=== PATIENT | female | born 1945 | race Two or more races ===

== ENCOUNTER 2020-08-03 09:22 | Outpatient (REF) | payer MEDICARE, SELFPAY | END 2020-08-03 09:23 | disposition home or self-care (01) | LOC: HO.SCI 09:22 | PROVIDERS: Visit Provider Pediatrics | DX: Z13.89 Encounter for screening for other disorder (principal) ==

== ENCOUNTER 2021-07-07 08:56 | Outpatient (REF) | payer MEDICARE, MEDICAID, SELFPAY ==
--- NOTE | ~2021-07-07 | CT_ITS ---
EXAMINATION: CT HEAD WITHOUT CONTRAST CLINICAL INFORMATION: Alzheimer's disease. COMPARISON: None TECHNIQUE: Contiguous axial imaging was performed from the skull base to vertex without intravenous administration of contrast. This CT examination was performed using dose optimization techniques as appropriate, variously including the following: *Automated exposure control *Adjustment of mA and/or kV according to patient size (this includes techniques or standardized protocols for targeted exams where dose is matched to indication/reason for exam; i.e. extremities or head) *Use of iterative reconstruction technique DLP: 642 mGy-cm FINDINGS: There is no evidence of acute intracranial hemorrhage or territorial infarction. No abnormal mass effect or midline shift is seen. Arshad to white matter differentiation is well preserved. No extra-axial fluid collections are identified. The ventricles are normal in size. There is no abnormal attenuation within the brain parenchyma. The osseous structures and soft tissues are normal. The mastoid air cells and visualized portions of the paranasal sinuses are well aerated. CT/CT head/brain wo con IMPRESSION: No acute intracranial process seen.
== END 2021-07-07 08:57 | disposition home or self-care (01) ==
LOC: HO.CT 08:56
PROVIDERS: PCP Pediatrics; Visit Provider Psychiatry & Neurology Neurology
DX: G30.9 Alzheimer's disease, unspecified (principal)
CPT/HCPCS: 70450

== ENCOUNTER 2023-03-21 11:54 | Outpatient (REF) | payer MEDICARE, SELFPAY ==
[2023-03-21 15:18] LABS: Folate 9.1 ng/mL (> or = 4.0); Vitamin B12 > 2000 pg/mL (200-900)
== END 2023-03-21 11:55 | disposition home or self-care (01) ==
LOC: HO.CHCLDS 11:54
PROVIDERS: Visit Provider Pediatrics
DX: E53.8 Deficiency of other specified B group vitamins (principal)
CPT/HCPCS: 36415; 82607; 82746

== ENCOUNTER 2025-01-22 09:26 | Outpatient (REF) | payer MEDICARE, SELFPAY ==
--- OUTSIDE RECORDS SUMMARY | 2025-01-21 11:30 | XMS_ITS | Encounter Summary ---
Author Organization [employer] Address [address] [facility] [address] [place] [address] Care Team Providers Care Aboriginal Education Teacher Name Role Phone Kristi Guerrero MD Primary Care Provider [phone] Encounter Details Date Type Department Care Team ([facility] st Contact Info) Description 01/21/2025 11:30 AM EST Office Visit [facility] CHC MED & PEDS [address] [place], [place] [phone] Kristi Guerrero MD [address] [place] [address] Swelling of finger of left hand (Primary Dx); Dietary counseling; Exercise counseling; Benign essential hypertension; Age related osteoporosis, unspecified pathological fracture presence Social History Tobacco Use Types Packs/Day Years Used Date Smoking Tobacco: Never Passive Smoke Exposure: Never Smokeless Tobacco: Never Depression Answer Date Recorded Patient Health Questionnaire-9 Score 1 01/21/2025 Patient Health Questionnaire-9 Score 1 01/21/2025 Last PHQ-9: Questionnaire Data Not on file 1 03/23/2024 Housing Stability Answer Date Recorded What is your housing situation today? I have winnie xiong 01/21/[address] you li ve. Do you have problems with any of the following? None of the above 01/21/2025 Food Insecurity Answer Date Recorded Within the past 12 months, y ou worried that your food would run out before you got money to buy more: Never True 01/21/2025 Within the past 12 months,th e food you bought just didn't last and you didn't have enough money to get more: Never True 02/2025 Transportation Answer Date Recorded In the past 12 months, has l ack of transportation kept you from medical appts, meetings, work or from getting things needed for daily living? No 01/21/2025 Utilities Answer Date Recorded In the past 12 months, has t he electric, gas, oil or water company threatened to shut off services in your home? No 01/21/2025 Depression Answer Date Recorded Patient Health Questionnaire-2 Score 1 01/21/2025 Internet Access Answer Date Recorded Internet Access Q1 Yes 01/21/2025 Internet Access Q2 Not on file 01/21/2025 Comments Unknown Sex and Gender Information Value Date Recorded Sex Assigned at Female 01/09/2022 10:37 AM EDT Legal Sex Female 10:37 AM EDT Gender Identity Female 01/09/2022 10:37 AM EDT Sexual Orientation Straight 01/09/2022 10 :37 AM EDT documented as of this encounter Last Filed Vital Signs Vital Sign Reading Time Taken Comments Blood Pressure 130/60 01/21/2025 11:37 AM EST Pulse 72 01/21/2025 11:37 AM EST Temperature 36.2 C (97.1 F) 01/21/2025 11:37 AM EST Respiratory Rate 20 01/21/2025 11:37 AM EST Oxygen Saturation - - Inhaled Oxygen Concentration - - Weight 63.5 kg (140 lb) 01/21/2025 11:37 AM EST Height - - Body Mass Index 29.01 10/07/2024 2:15 PM EDT documented in this encounter Functional Status * Over the past 2 weeks, how often have you been bothered by any of the following problems? Question Answer Date of Assessment Author Patient Health Questionnaire -2 Score 1 01/21/2025 12:40 PM EST Lia Espitia MA * Little interest or pleasure in doing things Answer Date of Assessment Author Not at all 01/21/2025 12:40 PM EST Tata Jaramillo MA * Feeling down, depressed, or hopeless Answer Date of Assessment Author Several days 01/21/2025 12:40 PM Tata Castañeda MA * Trouble falling or staying asleep, or sleeping too much Answer Date of Assessment Author Not at all 01/21/2025 12:40 PM EST Tata Jaramillo MA * Feeling tired or having little energy Answer Date of Assessment Author Not at all 01/21/2025 12:40 PM Tata Castañeda MA * Poor appetite or overeating Answer Date of Assessment Author Not at all 01/21/2025 12:40 PM Tata Castañeda MA * Feeling bad about yourself - or that you are a failure or have let yourself or your family down Answer Date of Assessment Author Not at all 01/21/2025 12:40 PM Tata Castañeda MA * Trouble concentrating on things, such as reading the newspaper or watching television Answer Date of Assessment Author Not at all 01/21/2025 12:40 PM Tata Castañeda MA * Moving or speaking so slowly that other people could have noticed? Or the opposite - being so fidgety or restless that you have been moving around a lot more than usual. Answer Date of Assessment Author Not at all 01/21/2025 12:40 PM Tata Castañeda MA * Thoughts that you would be better off or hurting yourself in some way Answer Date of Assessment Author Not at all 01/21/2025 12:40 PM Tata Castañeda MA * Patient Health Questionnaire-9 Score Answer Date of Assessment Author 1 01/21/2025 12:40 PM Tata Castañeda MA * Over the last 2 weeks, how often have you been bothered by any of the following problems? Question Answer Date of Assessment Author Feeling nervous, anxious, or on edge 1 01/21/2025 12:40 PM Lia Jones MA Not being able to stop or control worrying 1 01/21/2025 12:40 PM Lia Jones MA Worrying too much about different things 0 01/21/2025 12:40 PM Lia Jones MA Trouble relaxing 0 01/21/2025 12:40 PM Tata Jones MA Being so restless that it is hard to sit still 0 01/21/2025 12:40 PM Lia Jones MA Becoming easily annoyed or irritable 1 01/21/2025 12:40 PM Lia Jones MA Feeling afraid as if somethi ng awful might happen 1 01/21/2025 12:40 PM Lia Jones MA TANIA-7 Total Score 4 01/21/2025 12:40 PM Tata Jones MA * How difficult have these problems made it for you to do your work, take care of things at home, or get along with other people? Answer Date of Assessment Author Not difficult at all 01/21/2025 12:40 PM Tata Ibarra MA documented as of this encounter Progress Notes * Kristi Guerrero MD - 01/21/2025 11:30 AM EST Subjective Patient ID: Brisa Jane is a 79 y.o. female who presents for follow up Er. Brisa Jane, age 79 years Left Hand Swelling and Pain Swelling and pain in the left hand began approximately one month ago. No history of trauma or fall.Swelling recurred after initial improvement. Denies fever. Pain increases with movement and prevents full closure of the hand. Ibuprofen 400 mg provided relief. [facility] 01[facility]25 which temporarily reduced swelling. Xray done Reports a metallic foreign body in one finger, present for years, origin unknown. 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 No insect bite reported. Difficulty with hand function, requiring assistance for bathing and daily activities. Ocular Dryness Occasional sensation of dry eyes, managed with lubricating eye drops as needed. No daily requirement for drops. History of prior eye cataract surgery done recently w/o complications. Review of Systems Constitutional: Negative for activity change, chills, fever and unexpected weight change. Respiratory: Negative for cough, shortness of breath and wheezing. Cardiovascular: Negative for chest pain, palpitations and leg swelling. Gastrointestinal: Negative for abdominal pain and blood in stool. Endocrine: Negative for polydipsia and polyuria. Genitourinary: Negative for decreased urine volume, difficulty urinating, dysuria and hematuria. Musculoskeletal: Positive for arthralgias and joint swelling. Negative for gait problem. Skin: Negative for color change and rash. Neurological: Negative for dizziness and headaches. Hematological: Negative for adenopathy. Psychiatric/Behavioral: Negative for dysphoric mood, hallucinations, sleep disturbance and suicidalideas. The patient is not nervous/anxious. Objective BP 130/60 (BP Location: Left arm, Patient Position: Sitting, BP Cuff Size: Adult) Pulse72 Temp 97.1 ??F (36.2 ??C) (Oral) Resp 20 Wt 140 lb (63.5 kg) BMI 29.01 kg/m?? Physical Exam Vitals reviewed. Constitutional: General: She is not in acute distress. Appearance: Normal appearance. She is not ill-appearing. HENT: Head: Normocephalic. Cardiovascular: Rate and Rhythm: Normal rate and regular rhythm. Heart sounds: Normal heart sounds. Pulmonary: Effort: Pulmonary effort is normal. No respiratory distress. Breath sounds: Normal breath sounds. Musculoskeletal: General: Swelling and tenderness present. Right hand: Normal. Left hand: Swelling present. Decreased range of motion. Skin: Capillary Refill: Capillary refill takes less than 2 seconds. Findings: No erythema or rash. Neurological: Mental Status: She is alert and oriented to person, place, and time. Mental status is at baseline. Psychiatric: Mood and Affect: Mood normal. Behavior: Behavior normal. Assessment/Plan Diagnoses and all orders for this visit: Swelling of finger of left hand: - Swelling of the left finger possibly related to gout or other inflammatory process. Differential diagnosis includes gout and nerve impingement. Presence of a metallic foreign body noted on imaging.No evidence of trauma or insect bite. Arthritis noted in the fingers. - Ordered blood tests to evaluate for infection and uric acid levels. Will review laboratory results and call with findings. If laboratory results indicate gout or persistent inflammation, may refer to rheumatology. Recommended continued use of prescribed anti-inflammatory medication as previously directed. Ordered EMG to assess for nerve involvement. Provided instructions to call costume specialist if not contacted within 2-3 days. Advised use of transfer shower chair and shower bar for safety and assistance with bathing. Benign essential hypertension: - Benign essential hypertension is being managed with current antihypertensive medication. - Continue current antihypertensive regimen. Age related osteoporosis, unspecified pathological fracture presence: - Age-related osteoporosis increases risk for falls and fractures. - Advised use of transfer shower chair and shower bar to reduce fall risk. Reinforced safety precautions when navigating stairs. Swelling of finger of left hand - CBC auto differential; Future - Uric acid; Future - Rheumatoid Factor; Future - Sed Rate by Modified Westergren; Future Dietary counseling Exercise counseling Benign essential hypertension Age related osteoporosis, unspecified pathological fracture presence documented in this encounter Plan of Treatment Scheduled Orders Name Type Priority Associated Diagnoses Orde r Schedule CBC auto differential Lab Routine Swelling of finger of left hand Expected: 01/21/2025 (Approximate), Expires: 01/21/2026 Uric acid Lab Routine Swelling of finger of left hand Expected: 01/21/2025 (Approximate), Expires: 01/21/2026 Rheumatoid Factor Lab Routine Swelling of finger of left hand Expected: 01/21/2025, Expires: 01/21/2026 Sed Rate by Modified Westergren Lab Routine Swelling of finger of left hand Expected: 01/21/2025, Expires: 01/21/2026 documented as of this encounter Visit Diagnoses Diagnosis Swelling of finger of left hand- Primary Dietary counseling Dietary surveillance and counseling Exercise counseling Benign essential hypertension Essential hypertension, benign Age related osteoporosis, unspecified pathological fracture presence documented in this encounter Additional Health Concerns Assessment Noted Time PHQ-9 Depression Total Score: 1 01/22/20 25 12:40 PM EST documented as of this encounter Care Teams Aboriginal Education Teacher Relationship Specialty Start Date End Date Kristi Guerrero MD [address] [place] [id number] PCP - General Family Medicine 01/08/20 documented as of this encounter
--- OUTSIDE RECORDS SUMMARY | 2025-01-22 10:49 | XMS_ITS | Clinical Summary ---
[facility] Address [address] [place] [address] Care Team Providers Care Case Management Social Worker Name Role Phone Unavailable Primary Care Provider Unavailabl e Social History Tobacco Use Types Packs/Day Years Used Date Smoking Tobacco: Never Assessed Comments Unknown Sex and Gender Information Value Date Recorded Sex Assigned at Not on file Legal Sex Female 12:43 PM EST Gender Identity Not on file Sexual Orientation Not on file Plan of Treatment Health Maintenance Due Date Last Done Comments DTaP,Tdap,and Td Vaccines (1 - Tdap) 06/18/1964 Pneumococcal Vaccine: 50+ Ye ars (1 of 1 - PCV) 1994 Zoster Vaccines (1 of 2) 1994 RSV Immunization Adult Patie nts (1 - 1-dose 75+ series) 06/18/2019 Falls Risk Assessment 04/10/2023 Social Influencers of Health Screening 04/10/2023 Depression Screening 03/12/2024 COVID-19 Vaccine (1 - 2024-2 6 season) 2024 Influenza Vaccine (#1) 2024 Osteoporosis Screening (Bone Density Screening) 09/25/2032 09/25/2022 HIB Vaccines Aged Out No longer eligi ble based on patient's age to complete this topic HPV Vaccines Aged Out No longer eligi ble based on patient's age to complete this topic Hepatitis A Vaccines Aged Out No long er eligible based on patient's age to complete this topic Hepatitis B Vaccines Aged Out No long er eligible based on patient's age to complete this topic IPV Vaccines Aged Out No longer eligi ble based on patient's age to complete this topic MMR Vaccines Aged Out No longer eligi ble based on patient's age to complete this topic Meningococcal ACWY Vaccine Aged Out N o longer eligible based on patient's age to complete this topic Meningococcal B Vaccine Aged Out No l onger eligible based on patient's age to complete this topic RSV Immunization Patients Un lv 20 months Aged Out No longer eligible b ased on patient's age to complete this topic Varicella Vaccines Aged Out No longer eligible based on patient's age to complete this topic Procedures Procedure Name Priority Date/Time Associated Diagnosis Comments [facility] DEXA AXIAL SKELETON Routine 09/25/2022 7:33 AM EDT Age-related osteoporosis without current pathological fracture from Last 3 Months or Most Recently Relevant to Health Maintenance Results * [facility] DEXA AXIAL SKELETON (09/25/2022 7:33 AM EDT) Anatomical Region Laterality Modality Mammography 09/19/2022 1:50 PM EDT Narrative 09/25/2022 7:[address] [facility] Diagnostic Imaging Department [address] [place] [address] Patient: DULCE KUMARILAUREL /Age/Sex: 1945 - 77 - F Unit#: [id number] Location/Status: [facility] Ordering Physician: NOMAN GUERRERO [facility] Dexa Axial Skeleton - 09/19/22 - 3 Report Status:Signed HISTORY: The patient is a 77-year-old postmenopausal female with clinical concern for metabolic bone disease. FINDINGS: Dual energy x-ray absorptiometry of the lumbar spine and femurs is performed. The mean bone mineral density at L1-3 is 0.812 gm/cm2 which is 69% of that of young normals and 86% of that of age matched controls. This yields a T- score of -3.0 and a Z-score of -1.1 which is diagnostic of osteoporosis. The mean bone mineral density of the femurs bilaterally is 0.724 gm/cm2 which is 72% of that of young normals and 95% of that of age matched controls. This yields a T-score of -2.3 and a Z-score of -0.3 which is diagnostic of osteopenia. However, the T-score of the right femoral neck is -3.3 and that of the left femoral neck is -3.2 which is diagnostic of osteoporosis. IMPRESSION: 1. Osteoporosis. 2. FRAX analysis yields a 10-year probability of major osteoporotic fracture of 34.4% and a 10-year probability of hip fracture of 26.3%. Code 98152 Dictating Physician: ELMIRA RODRIGUES MD Electronically Signed by: ELMIRA RODRIGUES MD Dic Date/Time: 09/25/22731 Sign date/Time: 09/25/22732 Procedure Note Elmira Rodrigues MD - 04/17/2023 [facility] Diagnostic Imaging Department [address] [place] [address] Patient: LAUREL CASTANEDA/Age/Sex: 1945 - 77 - F Unit#: [id number] Location/Status: [facility] CLI [facility]emonic[facility] Ordering Physician: NOMAN GUERRERO F[facility] Dexa Axial Skeleton - 09/19/22 - 1413 Report Status:Signed HISTORY: The patient is a 77-year-old postmenopausal female withclinical concern for metabolic bone disease. FINDINGS: Dual energy x-ray absorptiometry of the lumbar spine and femursis performed. The mean bone mineral density at L1-3 is 0.812 gm/cm2 which is69% of that of young normals and 86% of that of age matched controls. This yieldsa T- score of -3.0 and a Z-score of -1.1 which is diagnostic of osteoporosis. The mean bone mineral density of the femurs bilaterally is 0.724 gm/vk1gacot is 72% of that of young normals and 95% of that of age matched controls.This yields a T-score of -2.3 and a Z-score of -0.3 which is diagnostic of osteopenia. However, the T-score of the right femoral neck is -3.3 andthat of the left femoral neck is -3.2 which is diagnostic of osteoporosis. IMPRESSION: 1. Osteoporosis. 2. FRAX analysis yields a 10-year probability of major osteoporoticfracture of 34.4% and a 10-year probability of hip fracture of 26.3%. Code 30460 Dictating Physician: ELMIRA RODRIGUES MD Electronically Signed by: ELMIRA RODRIGUES MD Dic Date/Time: 09/25/22731 Sign date/Time: 09/25/22732 us Noman Guerrero MD IMG BI PROCEDURES Final Resul t from Last 3 Months or Most Recently Relevant to Health Maintenance
--- OUTSIDE RECORDS SUMMARY | 2025-01-22 10:49 | XMS_ITS | Encounter Summary ---
Author Organization [employer] Address [address] [facility] [address] [place] [address] Care Team Providers Care Drivers License Examiner Name Role Phone Kristi Guerrero MD Primary Care Provider [phone] Reason for Visit * Reason Onset Date Comments Chart Prep 01/20/2025 Encounter Details Date Type Department Care Team ([facility] st Contact Info) Description 01/20/2025 Telephone [facility] CHC MED & PEDS [address] [place], [place] [phone] Kristi Guerrero MD [address] [place] [address] Chart Prep Social History Tobacco Use Types Packs/Day Years [...] AM EDT documented as of this encounter Miscellaneous Notes * Telephone Encounter - Tata Espitia MA - 01/20/2025 3:12 PM EST Chart Prep Labs: not applicable Images: not applicable Referrals: appointment pending Vaccines due: Covid and RSV Screenings: not applicable Overdue care gaps: SBIRT, SDOH, PHQ-9, Oral health screening, and Tobacco documented in this encounter Plan of Treatment Not on file documented as of this encounter Visit Diagnoses Not on filedocumented in this encounter Additional Health Concerns Assessment Noted Time PHQ-9 Depression Total Score: 0 09/07/19 23 9:12 AM EDT documented as of this encounter Care Teams Drivers License Examiner Relationship Specialty Start Date End Date Kristi Guerrero MD [address] [place] [id number] PCP - General Family Medicine 01/08/20 documented as of this encounter
--- OUTSIDE RECORDS SUMMARY | 2025-01-22 10:49 | XMS_ITS | Clinical Summary ---
Author Organization [employer] Address [address] [facility] [address] [place] [address] Care Team Providers Care Field Technical Assistant Name Role Phone Kristi Guerrero MD Primary Care Provider [phone] Allergies No known active allergies Medications alendronate (Fosamax) 70 MG tabletIndications :Age-related osteoporosis without current pathological fracture TAKE 1 TABLET(70 MG) BY MOUTH EVERY 7 DAYS 4 tablet 11 4 Active cholecalciferol (Vitamin D-3) 50 MCG (1999 UT) tablet TAKE 1 TABLET BY MOUTH DAILY 90 tablet 3 4 Active cyanocobalamin (Vitamin B-12) 500 MCG tablet TAKE 1 TABLET(500 MCG) BY MOUTH IN THE MORNING 30 tablet 3 5 Active amLODIPine (Norvasc) 5 MG tabletIndications :Primary hypertension TAKE 1 TABLET(5 MG) BY MOUTH IN THE MORNING 30 tablet 5 5 Active sertraline (Zoloft) 25 MG tablet Take 25 mg by mouth Once per day. Active Hospital, Clinic, or Other Facility Administered Medication Ordered Dose Route Frequency Start Date End Date Status cyanocobalamin (Vitamin B-12) injection 1,000 mcgIndications:Vitamin B 12 deficiency 1000 mcg IM Every 30 days 08/18/2022 Active cyanocobalamin (Vitamin B-12) injection 1,000 mcgIndications:Vitamin B 12 deficiency 1000 mcg IM Every 30 days 09/18/2022 Active cyanocobalamin (Vitamin B-12) injection 1,000 mcgIndications:Vitamin B 12 deficiency 1000 mcg IM Every 30 days 11/14/2022 Active cyanocobalamin (Vitamin B-12) injection 1,000 mcgIndications:Vitamin B 12 deficiency 1000 mcg IM Every 30 days 12/21/2022 Active Active Problems Problem Noted Date Diagnosed Date Age related osteoporosis 01/21/2025 Osteoarthritis 09/20/2023 Memory impairment 06/24/2020 Benign essential hypertension 01/08/2020 Pathological fracture due to osteoporosis 2019 Encounters Date Type Department Care Team Description 01/21/2025 11:30 AM EST Office Visit [facility] [address] [place] [address] Kristi Guerrero MD Swelling of finger of left hand (Primary Dx); Dietary counseling; Exercise counseling; Benign essential hypertension; Age related osteoporosis, unspecified pathological fracture presence 01/21/[address] [facility] [address] [place] [address] Kristi Guerrero MD 01/21/2025 Travel 01/20/[address] [facility] [address] [place] [address] Kristi Guerrero MD Chart Prep 12/31/[address] [facility] [address] [place] [address] Kristi Guerrero MD Nurse Triage 11/07/[address] [facility] [address] [place] [address] Kristi Guerrero MD Med Refill 11/07/2024 Refill [facility] [address] [place] [address] Kristi Guerrero MD Primary hypertension from Last 3 Months Immunizations Immunization Administration Dates Next Due Influenza High-dose Quadrivalent Preservative Fr ee 12/13/2021 Influenza Whole 02/20/2019 Influenza injectable quadrivalent preservative f ree 03/21/2023 Influenza, High Dose Seasonal, Preservative Free 12/29/2023 Influenza, trivalent, adjuvanted 12/08/2024 Pneumococcal Conjugate PCV 13 2019 Pneumococcal Conjugate PCV 20 08/25/2021 Zoster, Recombinant 08/25/2021,06/22/2021 Social History Tobacco Use Types Packs/Day Years Used Date Smoking Tobacco: Never Passive Smoke Exposure: Never Smokeless Tobacco: Never Tobacco Cessation:Counseling Given: Not Answered Depression Answer Date Recorded Patient Health Questionnaire-9 [...] Orientation Straight 01/09/2022 10 :37 AM EDT Last Filed Vital Signs Vital Sign Reading Time Taken Comments Blood Pressure 130/60 01/21/2025 11:37 AM EST Pulse 72 01/21/2025 11:37 AM EST Temperature 36.2 C (97.1 F) 01/21/2025 11:37 AM EST Respiratory Rate 20 01/21/2025 11:37 AM EST Oxygen Saturation 97% 10/07/2024 2:15 PM EDT Inhaled Oxygen Concentration - - Weight 63.5 kg (140 lb) 01/21/2025 11:37 AM EST Height 148 cm (4' 10.25 ) 10/07/2024 2:15 PM EDT Body Mass Index 29.01 10/07/2024 2:15 PM EDT Plan of Treatment Health Maintenance Due Date Last Done Comments DTaP/Tdap/Td Vaccines (1 - Tdap) 06/18/1964 RSV Patients and Patients Aged 60 years or older (1 - 1-dose 75+ series) 06/18/2019 COVID-19 Vaccine ( season) 2024 06/15/2021, 06/25/2020, 05/28/2020 Alcohol/Substance Use Screening 01/21/2026 01/21/2025 Depression Screening 01/21/2026 01/21/2025, 01/22/20 SDOH Screening 01/21/2026 01/21/2025 Tobacco Screening 01/21/2026 01/21/2025 Lipid Panel 08/30/2027 08/29/2022, 05/11, 01/13/2020 Pneumococcal Vaccine: 50+ Years Completed 08/25/2021, 2019 Zoster Vaccines Completed 08/25/2021, 06/22/2021 Influenza Vaccine Completed 12/08/2024, , 03/21/2023, Additional history exists HIB Vaccines Aged Out No longer eligi [...] patient's age to complete this topic Meningococcal Vaccine Aged Out No elvis dary eligible based on patient's age to complete this topic RSV under 20 months Aged Out No longe r eligible based on patient's age to complete this topic Rotavirus Vaccines Aged Out No longer eligible based on patient's age to complete this topic Procedures Procedure Name Priority Date/Time Associated Diagnosis Comments LIPID PANEL, STANDARD Routine 08/29/2022 9:41 AM EDT Vitamin B 12 deficiency Benign essential hypertension Pathological fracture of hip due to age-related osteoporosis with routine healing, unspecified laterality, subsequent encounter from Last 3 Months or Most Recently Relevant to Health Maintenance Results * (ABNORMAL) Lipid Panel, Standard (08/29/2022 9:41 AM EDT) Cholesterol, Total 126 <200 mg/dL [facility] HDL Cholesterol 28(L) > OR = 50 mg/dL [facility] Triglycerides 114 <150 mg/dL [facility] LDL Cholesterol 78 mg/dL (calc) [facility] Comment: Reference range: <100 Desirable range <100 mg/dL for primary prevention; <70 mg/dL for patients with CHD or diabetic patients with > or = 2 CHD risk factors. LDL-C is now calculated using the Landy calculation, which is a validated novel method providing better accuracy than the Friedewald equation in the estimation of LDL-C. Ricardo SS et al. CORINNA. 2013;310(19): 8738-4004 (http://education.[employer]/faq/NRS211) Chol/HDLC Ratio 4.5 <5.0 (calc) [facility] Non-HDL Cholesterol 98 <130 mg/dL (calc) [facility] Comment: For patients with diabetes plus 1 major ASCVD risk factor, treating to a non-HDL-C goal of <100 mg/dL (LDL-C of <70 mg/dL) is considered a therapeutic option. Blood Venous blood specimen / Unknown 08/29/2022 9:41 AM EDT 08/29/2022 9:42 AM EDT Narrative [facility] - 08/30/2022 7:15 AM EDT FASTING:YES FASTING: YES us Kristi Guerrero MD LAB BLOOD ORDERABLES Final Re sult [facility] [address], [place] [address] [facility] [address] [place] [address] from Last 3 Months or Most Recently Relevant to Health Maintenance Insurance DUAL COMPLETE Advance Directives Documents on File Type Date Recorded Patient [employer] Expl anation Advance Directives and Living Will 10/24/2023 HEALTHCARE PROXY 10/11 08/31 Advance Directives and Living Will 10/24/2023 HEALTHCARE PROXY 10/11 08/31 Care Teams Field Technical Assistant Relationship Specialty Start Date End Date Kristi Guerrero MD [address] [place] [address] PCP - General Family Medicine 01/08/20
--- OUTSIDE RECORDS SUMMARY | 2025-01-22 10:49 | XMS_ITS | Encounter Summary ---
Author Organization [employer] Address [address] [place] [address] Care Team Providers Care [employer] French Teacher Name Role Phone Kristi Guerrero MD Primary Care Provider [phone] Reason for Visit * Reason Onset Date Comments Med Refill 11/07/2024 Encounter Details Date Type Department Care Team ([facility] st Contact Info) Description 11/07/2024 Telephone [facility] [address] [place], [place] [id number] Kristi Guerrero MD [address] [place] [address] Med Refill Social History Tobacco Use Types Packs/Day Years Used Date Smoking Tobacco: Never Passive Smoke Exposure: Never Smokeless Tobacco: Never Depression Answer Date Recorded Patient Health Questionnaire-9 Score 0 09/06/2022 Housing Stability Answer Date Recorded What is your housing situation today? I have winnie xiong 01/18/[address] you li ve. Do you have problems with any of the following? None of the above 01/18/2023 Food Insecurity Answer Date Recorded Within the past 12 months, y ou worried that your food would run out before you got money to buy more: Never True 01/18/2023 Within the past 12 months,th e food you bought just didn't last and you didn't have enough money to get more: Never True 11/2022 Transportation Answer Date Recorded In the past 12 months, has l ack of transportation kept you from medical appts, meetings, work or from getting things needed for daily living? No 01/18/2023 Utilities Answer Date Recorded In the past 12 months, has t he electric, gas, oil or water company threatened to shut off services in your home? No 01/18/2023 Depression Answer Date Recorded Patient Health Questionnaire-2 Score 0 09/06/2022 Comments Unknown Sex and Gender Information Value Date Recorded Sex Assigned at Female 01/09/2022 10:37 AM EDT Legal Sex Female 10:37 AM EDT Gender Identity Female 01/09/2022 10:37 AM EDT Sexual Orientation Straight 01/09/2022 10 :37 AM EDT documented as of this encounter Miscellaneous Notes * Telephone Encounter - Keli Bacon LPN - 11/07/2024 4:14 PM EDT Medication pended to PCP. * Telephone Encounter - Juan Ziegler - 11/07/2024 4:12 PM EDT TC from pt requesting medication refill. Medications needing refill : amLODIPine (Norvasc) 5 MG tablet To be sent to: [id number] [place], [place] - [facility] documented in this encounter Plan of Treatment Not on file documented as of this encounter Visit Diagnoses Not on filedocumented in this encounter Additional Health Concerns Assessment Noted Time PHQ-9 Depression Total Score: 0 09/07/19 23 9:12 AM EDT documented as of this encounter Care Teams [employer] French Teacher Relationship Specialty Start Date End Date Kristi Guerrero MD [address] [place] [id number] PCP - General Family Medicine 01/08/20 documented as of this encounter
--- OUTSIDE RECORDS SUMMARY | 2025-01-22 10:49 | XMS_ITS | Encounter Summary ---
Author Organization [employer] Address [address] [facility] [address] [place] [address] Care Team Providers Care Information Clerk [employer] Name Role Phone Kristi Guerrero MD Primary Care Provider [phone] Encounter Details Date Type Department Care Team (Latest Contact Info) Description 01/21/2025 Travel Social History Tobacco Use Types Packs/Day Years Used Date Smoking Tobacco: Never Passive Smoke Exposure: Never Smokeless Tobacco: Never Depression Answer Date Recorded Patient Health Questionnaire-9 Score 1 01/21/2025 Patient Health Questionnaire-9 Score 1 01/21/2025 Last PHQ-9: Questionnaire Data Not on file 1 03/23/2024 Housing Stability Answer Date Recorded What is your housing situation today? I have winniedeon xiong 01/21/[address] you [...] AM EDT documented as of this encounter Functional Status * Over the past 2 weeks, how often have you been bothered by any of the following problems? Question Answer Date of Assessment Author Patient Health Questionnaire -2 Score 1 01/21/2025 12:40 PM Lia Jones MA * Little interest or pleasure in doing things Answer Date of Assessment Author Not at all 01/21/2025 12:40 PM Tata Castañeda MA * Feeling down, depressed, or hopeless Answer Date of Assessment Author Several days 01/21/2025 12:40 PM Tata Castañeda MA * Trouble falling or staying asleep, or sleeping too much Answer Date of Assessment Author Not at all 01/21/2025 12:40 PM Tata Castañeda MA * Feeling tired or having little [...] Ibarra MA documented as of this encounter Plan of Treatment Not on file documented as of this encounter Visit Diagnoses Not on filedocumented in this encounter Additional Health Concerns Assessment Noted Time PHQ-9 Depression Total Score: 1 01/22/20 25 12:40 PM EST documented as of this encounter Care Teams Information Clerk [employer] Relationship Specialty Start Date End Date Kristi Guerrero MD [address] [facility] [place] [address] PCP - General Family Medicine 01/08/20 documented as of this encounter
--- OUTSIDE RECORDS SUMMARY | 2025-01-22 10:49 | XMS_ITS ---
Author Name Anshul AGUILERA, MRS. Garcia Address [address] [place] [address] Phone [phone] [facility] Care Team Providers Care Director Of Dance Name Role Phone Radha Landers Unavailable [phone] DONNABENNOMAN Bustamante Unavailable [phone] Reason for Referral Not Available Allergies, adverse reactions, alerts No known allergies History of medication use Medication Class Instructions Start Date End Date Alendronate Sodium 70 mg Tab take 1 tabl et orally once every week 2020-11-26 No Data Available amLODIPine Besylate 5 mg Tab take 1 tabl et orally once daily 2020-11-26 No Data Available VITAMIN D3 50MCG TABLETS TAKE 1 TABLET B Y MOUTH DAILY 2022-01-30 2024-11-20 Sertraline 25 mg Tab Take 1 tablet daily 2022-04-21 No Data Available Cyanocobalamin 1000 MCG/ML Solution ADMINISTER 1 ML IN THE MUSCLE EVERY 30 DAYS 2022-07-17 2023-09-20 VITAMIN B-12 500MCG TABLETS once a day 2023-03-21 No Data Available Donepezil 5 mg Tab TAKE 1 TABLET BY YOAV TH DAILY AT BEDTIME 2023-05-23 2024-11-20 VITAMIN D3 50 MCG (1999 UT) TABS Take 1 tab by mouth daily 2024-01-28 No Data Availa ble Ketorolac Tromethamine 0.5 % Solution Ophthalmic 1 drop to right eye daily 2024-10-06 2024-12-18 Moxifloxacin 0.5 % Solution No Data Available 2024-11-20 prednisoLONE Acetate 1 % Suspension INSTILL 1 DROP INTO AFFECTED EYE 3 TIMES A DAY STARTING TWO DAYS PRIOR TO SURGERY. CONTINUE DIRECTED 2024-10-06 2024-12-18 Vitamin C Tab Chewable 1 tablet orally daily 2024-11-10 1 No Data Available Ibuprofen 800 mg Tab 1 tablet orally geovanna ly as needed 2024-11-20 No Data Available Refresh Tears 0.5 % Solution Ophthalmic 1 drop in both eyes as needed 2024-12-18 No Data Available Problem List Problem Status Onset Date Resolved Date Synopsis Other problems related to medical facilities and other health care Active 2023-09-20 N/A DEMENTIA CO NTINGENCY PLANLast updated: 11/20/2024Member to call for the following symptoms: Aggression/ Agitation/ Delirium/ Dysuria/ Urinary frequency/ WithdrawnPlanned intervention: Place order for urinalysis and culture; family to take sample to lab/ Encourage increased fluid intake/ Ask about last bowel movement/ Assess for UTI symptoms; if present, start Macrobid 100mg BID x5 days/ Haloperidol 0.5mg PO q8h PRN agitation/ Trazodone 50mg at bedtime Primary hypertension Active 2022-04-21 N/A 09/19: Pt to continue AmlodipineDaughter and patient deny monitoring BP at home but report adult daycare center monitoring BP for patientContinue taking medication, encouraged monitoring BP at home or developing awareness of BP readings, diet and exercise, and contact us if emergent HTN s/sx develop 11/20/24: Has a BP machine at home Everyday BP is checked at home Report persistent readings of 140/90 and above12/18/2024 They check BP at the program she's going to and she's coming out alright . Per caregiver, member does not c/o chest pain, headaches, SOB. Advised to adhere to low sodium diet and exercise to control BP. Advised of BP >180/>100 reason to call CB. Minimal recurrent major depressive disorder Active 2022-04-21 N/A 09/20/23: Pt to continue Sertraline as ordered. Denies SI/HIContinue taking medication, discussed coping mechanisms, and contact us if SI/HI develop 11/20/24: on zoloftstates she is going to a program where she socializes and does activity which helps her a lotPHQ 9 score of 3No SI/HI reported Continue with medication and f/u with PCP Alzheimer disease Active 2022-04-21 N/A 09/20/23 : Pt to continue donepezil as ordered pending neuro follow-up this week. Forgetful.11/20/24: not on donepezil anymore- state she did not feel how it made her feel so it was stopped has dementia per daughteraround 5 months saw PCPforgets per daughterLosing ability to walk as well - has aches and pains at times she gets anxious/agitated but its rarelycontinue f/u with PCP Osteoporosis Active 2022-04-21 N/A 09/20/23: Pt to continue Alendronate, Vitamin [id number] taking medication, discussed dietary interventions, fall precautions, and contact us if injury r/t fall occurs. 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 Continue taking medication,F/U with PC P CataractChronic painGeneralized weakness Active 2024-11-20 N/A on eye dropsAugust had one eye cataract surgery12/03/24 has appt with doctor to get a scheduled date for the other eye continue to f/uHas a shower chair but does not know how long ago had it- states nurse came in and showed her a picture of one she wants and she tried it out it helped her a lot- advised to send a pic of the shower chair or give us the name otherwise provider does not know which one to order Daughter states that she will get that information and contact us back Asking for grab bars- advised to discuss with CM as she does not need an order for that Encounters Encounters Type Facility Date of Service Diagnosis/Co mplaint New patient,40-59min; chronic exacerbation, 2 stable chronic or 1 acute illness add add modifier 95 for video (do not use for phone, instead use [id number]) [facility], ([place]) 04/21/2022 Alzheimer's disease, unspecifiedDementia in oth diseases classd elswhr w/o behavrl disturbMajor depressive disorder, recurrent, mildEssential (primary) hypertensionAge-related osteoporosis without current pathological fracture New patient,40-59min; chronic exacerbation, 2 stable chronic or 1 acute illness add add modifier 95 for video (do not use for phone, instead use [id number]) [facility], ([place] 04[place]21/[place] New patient,40-59min; chronic exacerbation, 2 stable chronic or 1 acute illness add add modifier 95 for video (do not use for phone, instead use [id number]) [facility], ([place] 04[place]21/20[place] New patient,40-59min; chronic exacerbation, 2 stable chronic or 1 acute illness add add modifier 95 for video (do not use for phone, instead use 94737-27) [facility], ([place] 04/21/20[place] New patient,40-59min; chronic exacerbation, 2 stable chronic or 1 acute illness add add modifier 95 for video (do not use for phone, instead use 13273-32) [facility] ([place]) 04/21/2022 New patient,40-59min; chronic exacerbation, 2 stable chronic or 1 acute illness add add modifier 95 for video (do not use for phone, instead use 16901-73) [facility] ([place]) 04/21/2022 Unlisted special service; to be used for medical record reviews and reporting CPTII codes (1111F, etc) [facility] ([place]) 10/18/2022 Other specified counseling Unlisted special service; to be used for medical record reviews and reporting CPTII codes (1111F, etc) [facility] ([place]) 10/18/2022 Unlisted special service; to be used for medical record reviews and reporting CPTII codes (1111F, etc) [facility] ([place]) 10/18/2022 Estab. patient 30-39min; chronic exacerbation, 2 stable chronic or 1 acute illness add add modifier 95 for video, (do not use for phone, instead use 53483-16) [facility] ([place]) 09/20/2023 Alzheimer's disease, unspecifiedDementia in oth diseases classd elswhr w/o behavrl disturbAge-related osteoporosis without current pathological fractureMajor depressive disorder, recurrent, mildEssential (primary) hypertensionOther problems related to medical facilities and other health careAge-rel osteopor w current path fracture, unsp site, init Estab. patient 30-39min; chronic exacerbation, 2 stable chronic or 1 acute illness add add modifier 95 for video, (do not use for phone, instead use [id number]) [facility], ([place] 09/20/2023 Estab. patient 30-39min; chronic exacerbation, 2 stable chronic or 1 acute illness add add modifier 95 for video, (do not use for phone, instead use 46560-97) [facility], ([place] 09/20/2023 Estab. patient 30-39min; chronic exacerbation, 2 stable chronic or 1 acute illness add add modifier 95 for video, (do not use for phone, instead use 74057-16) [facility], ([place]) 09/20/2023 Estab. patient 30-39min; chronic exacerbation, 2 stable chronic or 1 acute illness add add modifier 95 for video, (do not use for phone, instead use 01279-08) [facility], ([place]) 09/20/2023 Estab. patient 30-39min; chronic exacerbation, 2 stable chronic or 1 acute illness add add modifier 95 for video, (do not use for phone, instead use 85007-49) [facility], ([place]) 09/20/2023 Estab. patient 30-39min; chronic exacerbation, 2 stable chronic or 1 acute illness add add modifier 95 for video, (do not use for phone, instead use [id number]) [facility], ([place]) 09/20/2023 Estab. patient 30-39min; chronic exacerbation, 2 stable chronic or 1 acute illness add add modifier 95 for video, (do not use for phone, instead use 23275-40) [facility], ([place] 09/20/2023 Estab. patient 10-29min; 1 minor problem; add add modifier 95 for video, modifier 93 for phone [facility] ([place]) 11/20/2024 Alzheimer's disease, unspecifiedDementia in oth diseases classd elswhr w/o behavrl disturbAge-related osteoporosis without current pathological fractureMajor depressive disorder, recurrent, mildEssential (primary) hypertensionUnspecified cataractOther chronic painWeaknessOther problems related to medical facilities and other health care Estab. patient 10-29min; 1 minor problem; add add modifier 95 for video, modifier 93 for phone [facility], ([place] 11/20/2024 Estab. patient 10-29min; 1 minor problem; add add modifier 95 for video, modifier 93 for phone [facility], ([place]) 11/20/2024 Estab. patient 10-29min; 1 minor problem; add add modifier 95 for video, modifier 93 for phone [facility] Estab. patient 10-29min; 1 minor problem; add add modifier 95 for video, modifier 93 for phone [facility], ([place]) 11/20/2024 Estab. patient 10-29min; 1 minor problem; add add modifier 95 for video, modifier 93 for phone [facility] Estab. patient 10-29min; 1 minor problem; add add modifier 95 for video, modifier 93 for phone [facility] [place] Estab. patient 10-29min; 1 minor problem; add add modifier 95 for video, modifier 93 for phone [facility] [place] [place]/20/[facility] Estab. patient 10-29min; 1 minor problem; add add modifier 95 for video, modifier 93 for phone [facility] [place] 12/18/2024 Essential (primary) hypertensionOther problems related to medical facilities and other health care Estab. patient 10-29min; 1 minor problem; add add modifier 95 for video, modifier 93 for phone [facility] 12/18/[facility]24 Vital Signs Date of Collection Vitals 2022-04-21 13:43:15 Height - 147.32 cmWe ight - 63.05 kgBody Mass Index (BMI) - 29.05 kg/m2 2023-09-20 14:06:50 Weight - 63.5 kgBody Mass Index (BMI) - 29.26 kg/m2BP Diastolic - 66.0 mm[Hg]BP Systolic - 139.0 mm[Hg] 2024-11-20 11:40:00 Height - 147.96 cmWe ight - 63.05 kgBody Mass Index (BMI) - 28.8 kg/m2Pain Scale - 0.0 {score} Social History Social History Social History Observation Description Effec tive Time Current Smoking Status Never smoker 2025-01-10 3 Sex Female History of Procedures Procedures Service Procedure code Service date Servicing provider Phone# New patient,40-59min; chronic exacerbation, 2 stable chronic or 1 acute illness add add modifier 95 for video (do not use for phone, instead use [id number]) 10086 2022-04-21 No Data Available No Data Availa ble Medication List Documented (1159F) 1159F 2022-04-21 No Data Available No Data Leda ilable Medication Review by prescribing provider or pharmacist documented (1160F) 1160F 2022-04-21 No Data Available No Data Leda ilable Pain Assessment - NO pain present (1126F) 1126F 2022-04-21 No Data Available No Data A vailable Advance Care Directive Advance care planning discussion documented in the medical record (1158F) 1158F 2022-04-21 No Data Available No Data Availa ble BMI obtained (3008F) 3008F 2022-04-21 No Data Availab le No Data Available Unlisted special service; to be used for medical record reviews and reporting CPTII codes (1111F, etc) 88685 2022-10-18 No Data Available No Data Availa ble SBP < 130 (3074F) 3074F 2022-10-18 No Data Available No Data Available DBP <80 (3078F) 3078F 2022-10-18 No Data Available No Data Available Estab. patient 30-39min; chronic exacerbation, 2 stable chronic or 1 acute illness add add modifier 95 for video, (do not use for phone, instead use 14494-21) 84299 2023-09-20 No Data Available No Data Availa ble Medication List Documented (1159F) 1159F 2023-09-20 No Data Available No Data Leda ilable Medication Review by prescribing provider or pharmacist documented (1160F) 1160F 2023-09-20 No Data Available No Data Leda ilable Functional Status Assessed (1170F) 1170F 2023-09-20 No Data Available No Data Avail able Advance Care Directive Advance care planning discussion documented in the medical record (1158F) 1158F 2023-09-20 No Data Available No Data Availa ble BMI obtained (3008F) 3008F 2023-09-20 No Data Availab le No Data Available SBP 130-139 (3075F) 3075F 2023-09-20 No Data Availabl e No Data Available DBP <80 (3078F) 3078F 2023-09-20 No Data Available No Data Available Estab. patient 10-29min; 1 minor problem; add add modifier 95 for video, modifier 93 for phone [id number] 2024-11-20 No Data Available No Data Availa ble Medication List Documented (1159F) 1159F 2024-11-20 No Data Available No Data Leda ilable Medication Review by prescribing provider or pharmacist documented (1160F) 1160F 2024-11-20 No Data Available No Data Leda ilable Functional Status Assessed (1170F) 1170F 2024-11-20 No Data Available No Data Avail able Advance Care Directive Advance care planning discussion documented in the medical record (1158F) 1158F 2024-11-20 No Data Available No Data Availa ble Advance care planning discussed and documented advance care plan or surrogate decision-maker was documented in the medical record. (1123F) 1123F 2024-11-20 No Data Available No Data Availa ble Pain Assessment - NO pain present (1126F) 1126F 2024-11-20 No Data Available No Data A vailable BMI obtained (3008F) 3008F 2024-11-20 No Data Availab le No Data Available Estab. patient 10-29min; 1 minor problem; add add modifier 95 for video, modifier 93 for phone [id number] 2024-12-18 No Data Available No Data Availa ble Medication List Documented (1159F) 1159F 2024-12-18 No Data Available No Data Leda ilable Functional Status Functional Category Effective Dates Cognition Status: Oriented t o Person, Place and TimeDementia mildADL Eating: Independent; Ambulation: Independent; Dressing: Some Help Needed; Bathing: Some Help Needed; Toileting: Some Help NeededIADL Shopping: Some Help Needed; Housekeeping: Some Help Needed; Meal Prep: Some Help Needed; Medications Management: Some Help NeededFalls in last 6 Months: No 2024-11-20 Mental Status Status Date AOx 4 2022-04-21 Assessments Date of Service Assessments 2022-04-21 13:43:15 Alzheimer diseaseOst eoporosisMinimal recurrent major depressive disorderPrimary hypertension 2023-09-20 14:06:50 Alzheimer disease09/09 04/04: Pt to continue donepezil as ordered pending neuro follow-up this week. Forgetful.Minimal recurrent major depressive disorder09/20/23: Pt to continue Sertraline as ordered. Denies SI/HIContinue taking medication, discussed coping mechanisms, and contact us if SI/HI developPrimary hypertension09/20/23: Pt to continue AmlodipineDaughter and patient deny onitoring BP at home but report adult daycare center monitoring BP for patientContinue taking medication, encouraged monitoring BP at home or developing awareness of BP readings, diet and exercise, and contact us if emergent HTN s/sx developOther problems related to medical facilities and other health careFALL CONTINGENCY PLANMember to call for the following symptoms: Fall / Pre-syncope/ Vertigo/ WeaknessPlanned intervention: Order x-ray if indicated/ Encourage extra fluid intake / Review importance of sitting for two to three minutes prior to standing after laying downOsteoporosisOsteoporosis with pathological fracture09/20/23: Pt to continue Alendronate, Vitamin [id number] taking medication, discussed dietary interventions, fall precautions, and contact us if injury r/t fall occurs. Pathological fx 2020 2024-11-20 11:40:00 Alzheimer diseaseOst eoporosisMinimal recurrent major depressive disorderPrimary hypertensionOther problems related to medical facilities and other health careCataractChronic painGeneralized weakness 2024-12-18 06:12:45 Primary hypertension Other problems related to medical facilities and other health care Plan of Care Date of Service Plans 2022-04-21 13:43:15 Pain Assessment - NO pain documented (1126F)Medication Review by prescribing provider or pharmacist documented (1160F)Medication List Documented (1159F)Functional Status Assessed (1170F)Advance Care Directive Advance care planning discussion documented in the medical record (1158F)BMI obtained (3008F)Televideo new patient,40-59min; chronic exacerbation, 2 stable chronic or 1 acute illness add modifier 95Continue to see PCP. Follow-up with [facility] needed for any acute or disease education needs that may arise.StableDaughter denies neurology starting patient on medication yetDaughter denies any safety or behavioral concerns from the patientContinue monitoring for safety and behavioral changes and continue f/u care w/ PCP and neurology every 3-6 months for management and monitoringStableAlendronate, Vitamin [id number] taking medication, discussed dietary interventions, fall precautions, and contact us if injury r/t fall occursStableSertralineDenies SI/HIContinue taking medication, discussed coping mechanisms, and contact us if SI/HI developAmlodipineDaughter and patient deny onitoring BP at home but report adult daycare center monitoring BP for patientContinue taking medication, encouraged monitoring BP at home or developing awareness of BP readings, diet and exercise, and contact us if emergent HTN s/sx develop 2022-10-18 09:02:50 SBP < 130 (3074F)DBP <80 (3078F)Unlisted special service; to be used for medical record reviews and reporting CPTII codes (1111F, etc) 2023-09-20 14:06:50 Medication Review by prescribing provider or pharmacist documented (1160F)Medication List Documented (1159F)Functional Status Assessed (1170F)Advance Care Directive Advance care planning discussion documented in the medical record (1158F)BMI obtained (3008F)Televideo 30-39min; chronic exacerbation, 2 stable chronic or 1 acute illness add modifier 95Advance care planning discussed and documented advance care plan or surrogate decision-maker was documented in the medical record. (1123F)Pain Assessment - NO pain documented (1126F)Continue to see PCP. [facility] with [facility] needed for any acute or disease education needs that may arise.Member to continue taking medications as directed, and keep all follow up appointments with established PCP and specialists. 2024-11-20 11:40:00 Medication Review by prescribing provider or pharmacist documented (1160F)Medication List Documented (1159F)Functional Status Assessed (1170F)Advance Care Directive Advance care planning discussion documented in the medical record (1158F)Advance care planning discussed and documented advance care plan or surrogate decision-maker was documented in the medical record. (1123F)Estab. patient 20-29min; 1 stable chronic or 2 minor; add add modifier 95 for video, modifier 93 for phonePain Assessment - Pain Documented on a Pain Scale (1125F)BMI obtained (3008F)Continue to see PCP. Follow-up with [facility] as needed for any acute or disease education needs that may arise.09/20/23: Pt to continue donepezil as ordered pending neuro follow-up this week. Forgetful.11/20/24: not on donepezil anymore- state she did not feel how it made her feel so it was stopped has dementia per daughteraround 5 months saw PCPforgets per daughterLosing ability to walk as well - has aches and pains at times she gets anxious/agitated but its rarelycontinue f/u with PCP09/20/23: Pt to continue Alendronate, Vitamin [id number] taking medication, discussed dietary interventions, fall precautions, and contact us if injury r/t fall occurs. 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 Denies SI/HIContinue taking medication, discussed coping mechanisms, and contact us if SI/HI develop 11/20/24: on zoloftstates she is going to a program where she socializes and does activity which helps her a lotPHQ 9 score of 3No SI/HI reported Continue with medication and f/u with PCP09/20/23: Pt to continue AmlodipineDaughter and patient deny onitoring BP at home but report adult daycare center monitoring BP for patientContinue taking medication, encouraged monitoring BP at home or developing awareness of BP readings, diet and exercise, and contact us if emergent HTN s/sx develop 11/20/24: Has a BP machine at home Everyday BP is checked at home Report persistent readings of 140/90 and aboveDEMENTIA CONTINGENCY PLANLast updated: 11/20/2024Member to call for the following symptoms: Aggression/ Agitation/ Delirium/ Dysuria/ Urinary frequency/ WithdrawnPlanned intervention: Place order for urinalysis and culture; family to take sample to lab/ Encourage increased fluid intake/ Ask about last bowel movement/ Assess for UTI symptoms; if present, start Macrobid 100mg BID x5 days/ Haloperidol 0.5mg PO q8h PRN agitation/ Trazodone 50mg at bedtimeon eye dropsAugust had one eye cataract surgery12/03/24 has appt with doctor to get a scheduled date for the other eye continue to f/uHas a shower chair but does not know how long ago had it- states nurse came in and showed her a picture of one she wants and she tried it out it helped her a lot- advised to send a pic of the shower chair or give us the name otherwise provider does not know which one to order Daughter states that she will get that information and contact us back Asking for [employer]- advised to discuss with CM as she does not need an order for that 2024-12-18 06:12:45 Estab. patient 10-29 min; 1 minor problem; add add modifier 95 for video, modifier 93 for phoneContinue to see PCP. Follow-up with [facility] as needed for any acute or disease education needs that may arise 02/10.09/20/23: Pt to continue AmlodipineDaughter and patient deny monitoring BP at home but report adult daycare center monitoring BP for patientContinue taking medication, encouraged monitoring BP at home or developing awareness of BP readings, diet and exercise, and contact us if emergent HTN s/sx develop 11/20/24: Has a BP machine at home Everyday BP is checked at home Report persistent readings of 140/90 and above12/18/2024 They check BP at the program she's going to and she's coming out alright . Per caregiver, member does not c/o chest pain, headaches, SOB. Advised to adhere to low sodium diet and exercise to control BP. Advised of BP >180/>100 reason to call CB.DEMENTIA CONTINGENCY PLANLast updated: 11/20/2024Member to call for the following symptoms: Aggression/ Agitation/ Delirium/ Dysuria/ Urinary frequency/ WithdrawnPlanned intervention: Place order for urinalysis and culture; family to take sample to lab/ Encourage increased fluid intake/ Ask about last bowel movement/ Assess for UTI symptoms; if present, start Macrobid 100mg BID x5 days/ Haloperidol 0.5mg PO q8h PRN agitation/ Trazodone 50mg at bedtimeContinue taking medications as directed, and keep all follow up appointments with established PCP and Specialist Goals Date Goal 2022-04-21 Remember to implemen t a low salt diet, exercise as tolerable, and monitor BP daily. 2022-04-21 Contact us if develo ping emergent HTN, acute change in mental status, injury r/t fall, or SI/HI develop 2022-04-21 Continue taking medi cations as prescribed and following up with PCP and neurology every 6 months 2022-04-21 BP monitoring inform ation and education appointment 2023-09-20 Discussed Hien 's 02/10 program with member. Encouraged member to reach out to [facility] if they have any questions or concerns. 2024-11-20 Continue taking medi cations as directed and keep all follow up appointments with established PCP and Specialist. 2024-12-18 At least 50% of time spent counseling patient, discussing diagnosis, treatment plan, compliance, and coordinating follow-up care Health Concerns Date Concern 2024-12-18 Patient/Guardian agr eed to visit via telehealth.Visit completed via: LL ID [id number][ ] audio and video; [x] audio only 2024-12-18 Concerns for today's visit:Member requesting: bathtub bar, handheld shower head, transfer shower bench, and 3 in 1 commode 2024-12-18 Most recent hospital stay or ER visit:No ER visits or hospitalizations documented in [facility] in 90 days.Member denies ER visits or hospitalizations in last 90 days. 2024-12-18 Open HEDIS Measures: No open measures
--- OUTSIDE RECORDS SUMMARY | 2025-01-22 10:49 | XMS_ITS | Encounter Summary ---
Author Organization [employer] Address [address] [place] [address] Care Team Providers Care Knitting Teacher Name Role Phone Kristi Guerrero MD Primary Care Provider [phone] Encounter Details Date Type Department Care Team ([facility] st Contact Info) Description 01/21/2025 Telephone [facility] [address] [place], [place] [phone] Kristi Guerrero MD [address] [place], [place] [phone] Social History Tobacco Use Types Packs/Day Years [...] t he electric, gas, oil or water [employer] threatened to shut off services in your [...] encounter Miscellaneous Notes * Telephone Encounter - Ivana Miller LPN - 01/21/2025 12:38 PM EST Rx generated and faxed to [facility] ----- Message from Kristi Guerrero MD sent at 01/21/2025 12:16 PM EST ----- Needs a transfer shower chair and a shower bar please.Added to note, diagnosis : osteoporosis with history of fractures thanks documented in this encounter Plan of Treatment Not on file documented as of this encounter Visit Diagnoses Not on filedocumented in this encounter Additional Health Concerns Assessment Noted Time PHQ-9 Depression Total Score: 1 01/22/20 25 12:40 PM EST documented as of this encounter Care Teams Knitting Teacher Relationship Specialty Start Date End Date Kristi Guerrero MD [address] [place] [id number] PCP - General Family Medicine 01/08/20 documented as of this encounter
--- OUTSIDE RECORDS SUMMARY | 2025-01-22 10:49 | XMS_ITS | Clinical Summary ---
Author Organization [facility] Address [address] [address] Phone Care Team Providers Care Floor Assembler Name Role Phone Unknown, Unknown Primary Care Provider Lorenzo francois Medications amLODIPine (NORVASC) 5 MG tablet Take 5 mg by mouth daily. Active alendronate (FOSAMAX) 70 MG tablet Take 70 mg by mouth every 7 days. Take in the morning with a full glass of water, on an empty stomach, and do not take anything else by mouth or lie down for the next 30 min. Active Family History Medical History Relation Comments Hyperlipidemia Father Hypertension Father Heart disease Mother Relation Status Comments Father Mother Social History Tobacco Use Types Packs/Day Years Used Date Smoking Tobacco: Never Smokeless Tobacco: Never Alcohol Use Standard Drinks/Week Comments Not Currently 0 (1 standard drink = 0.6 oz pur e alcohol) Education Answer Date Recorded Are you interested in more education? Not on renee e 07/07/2022 Are you concerned about learning? Not on file 07/07/2022 No 07/07/2022 No 07/07/2022 Digital Access Answer Date Recorded No 08/05/2022 No 08/05/2022 No 08/05/2022 Reliable internet access at home? Not on file 08/05/2022 Device with a working camera? Not on file Comments Unknown Sex and Gender Information Value Date Recorded Sex Assigned at Not on file Legal Sex Female 2:51 PM EDT Gender Identity Not on file Sexual Orientation Not on file Plan of Treatment Health Maintenance Due Date Last Done Comments Adult Td,Tdap Booster 1944 LIPID PANEL 1944 DEPRESSION SCREENING 1956 PNEUMOCOCCAL VACCINES (50+ y ears) (1 of 1 - PCV) 1994 ZOSTER VACCINES (1 of 2) 1994 OSTEOPOROSIS SCREENING INITI AL (ONE-TIME) 2009 RSV VACCINE (1 - 1-dose 75+ series) 06/18/2019 INFLUENZA VACCINE (#1) 2024 COVID-19 VACCINE (2 - 2024-2 6 season) 2024 05/28/2020 SMOKING STATUS SCREENING (On ce After 26 Yrs) Completed 11/18/2019 HEPATITIS A VACCINES Aged Out No long er eligible based on patient's age to complete this topic HIB VACCINES Aged Out No longer eligi ble based on patient's age to complete this topic IPV VACCINES Aged Out No longer eligi ble based on patient's age to complete this topic MENINGOCOCCAL VACCINES (ACWY) Aged Out No longer eligible based on patient's age to complete this topic MENINGOCOCCAL VACCINES (B) Aged Out N o longer eligible based on patient's age to complete this topic Medical Devices Not on file Insurance MEDICARE REPLACEMENT MEDICARE REPLACEMENT MEDICARE REPLACEMENT MEDICARE REPLACEMENT MEDICARE REPLACEMENT Member Subscriber Plan / Payer (Ef fective 2019-Present) Name:Montgomery Colon, Brisa Relation to Subscriber:Self Name:Montgomery Colon, Brisa Payer ID:[id number] (NAIC) Group ID:[id number] Type:Medicare Address: [place] [id number] MEDICARE REPLACEMENT Member Subscriber Plan / Payer (Ef fective 2019-Present) Name:Montgomery Colon Brisa Relation to Subscriber:Self Name:Ulises Jane, Brisa Payer ID:[id number] (NAIC) Group ID:[id number] Type:Medicare Address: [place] [id number] MEDICARE REPLACEMENT Member Subscriber Plan / Payer (Ef fective 2019-Present) Name:Montgomery Colon, Brisa Relation to Subscriber:Self Name:Montgomery Colon, Brisa Payer ID:[id number] (NAIC) Group ID:[id number] Type:Medicare Address: [place] [id number] MEDICARE REPLACEMENT [facility] MEDICARE REPLACEMENT Care Teams Floor Assembler Relationship Specialty Start Date End Date Unknown, Unknown, PCP - General 04/16/20 Additional Source Comments The information contained in this document represents components of the legal health record. It is not the complete legal health record.[facility]
[2025-01-22 14:04] LABS: MANUAL DIFF FLAG NO
[2025-01-22 14:30] LABS: Hematocrit 42.2 % (37.0-47.0); Hemoglobin 13.9 g/dl (12.0-16.0); Imm Gran Abs Auto 0.05 X10*3/uL (0.00-0.03); Imm Gran Pct Auto 0.5 % (0.0-0.4); Lymphocytes Absolute Auto 3.4 X10*3/uL (1.2-4.9); Mean Corpuscular HGB Conc 32.9 g/dl (31.0-35.0); Mean Corpuscular Hemoglobin 30.5 pg (27.0-33.0); Mean Corpuscular Volume 92.5 fL (80.0-98.0); NRBC Abs Auto 0.000 X10*3/uL (0.0-0.012); NRBC Pct Auto 0.0 /100WBC (0.0-0.2); Platelet Count 272 X10*3/uL (160-400); Red Blood Count 4.56 X10*6/uL (4.20-5.50); White Blood Count 10.7 X10*3/uL (4.8-10.8)
[2025-01-22 15:15] LABS: Uric Acid 3.9 mg/dL (2.4-5.7)
== END 2025-01-22 09:27 | disposition home or self-care (01) ==
LOC: HO.CHCLDS 09:26
PROVIDERS: Visit Provider Pediatrics
DX: M79.89 Other specified soft tissue disorders (principal)
CPT/HCPCS: 36415; 84550; 85025; 85652; 86431